=== PATIENT | male | born 1950 | race Two or more races ===

== ENCOUNTER 2018-01-29 07:38 | Day surgery (SDC) | payer OTHER ==
[2018-01-29] VITALS (7 sets, daily range): BP systolic 130–157; BP diastolic 70–85
[~2018-01-29] VITALS: Ht 170.2 cm; Wt 89.8 kg
[~2018-01-29 07:38] MED LIST: LR 1000ml 1,000 ML IVLG SCH
[2018-01-29] MEDS ORDERED: OMEPRAZOLE20 M2 ORAL (08:25)
--- NOTE | 2018-01-29 09:35 | Anethesia Preoperative Eval ---
Anesthesia Pre-op PMH/ROS General Date of Evaluation: Jan 29, 2018 Time of Evaluation: 09:38 Anesthesiologist: Hannah Jackson CRNA ASA Score: ASA 2 Mallampati Score Class I : Soft palate, uvula, fauces, pillars visible Class II: Soft palate, uvula, fauces visible Class III: Soft palate, base of uvula visible Class IV: Only hard plate visible Mallampati Classification: Class III Surgeon: Gisel Diagnosis: GERD Anesthesia History: none Family History: no anesthesia problems Allergies: Coded Allergies: No Known Allergies (Unverified , 01/28/18) Medications: see eMAR Past Medical History Cardiovascular: Denies: HTN, CAD, NM, valve dz, arrhythmia, other Pulmonary: Reports: YEE; Denies: asthma, COPD, other Gastrointestinal/Genitourinary: Reports: GERD; Denies: CRI, ESRD, other Neurologic/Psychiatric: Reports: depression/anxiety; Denies: dementia, CVA, TIA, other Endocrine: Denies: DM, hypothyroidism, steroids, other HEENT: Denies: cataract (L), cataract (R), glaucoma, KENAITZE (L), KENAITZE (R), other Hematology/Immune: Denies: anemia, DVT, bleeding disorder, other Musculoskeletal/Integumentary: Reports: OA; Denies: RA, DJD, DDD, edema, other PMH Narrative: as above PSxH Narrative: Knee surgery Anesthesia Pre-op Phys. Exam Physician Exam Last Vital Signs Date Time Temp Pulse Resp B/P (MAP) Pulse Ox O2 Delivery O2 Flow Rate FiO2 01/29/18 08:30 97.2 64 20 138/79 98 Room Air 97.2 Constitutional: NAD Neurologic: CN 2-12 intact Cardiovascular: RRR Respiratory: CTA Gastrointestinal: S/NT/ND, other - obese Airway Exam Mallampati Score: Class III MO: full Neck: thick short neck TMD: > 3 FB ROM: full Teeth: intact Dentures: no upper, no lower Anesthesia Pre-op A/P Risk Assessment & Plan Assessment: ASA 2, ok to proceed Plan: MAC Status Change Before Surgery: No Pre-Antibiotics Given Within 1 Hr of Incision: Hannah Ambrocio CRNA Jan 29, 2018 09:35
[2018-01-29] MEDS ORDERED: DiphenhydrAMINE 50mg/ml Inj ONE (10:00)
[2018-01-29] MEDS ORDERED: LR 1000ml ONE (10:00)
[2018-01-29] MEDS ORDERED: Lidocaine 1% MPF 10mg/ml 5ml ONE (10:00)
[2018-01-29] MEDS ORDERED: Propofol 200mg/20ml IV ONE (10:00)
--- NOTE | 2018-01-29 10:02 | Pre-Procedure Note/Attestation ---
Pre-Procedure Note/Attestation Complete Prior to Procedure Planned Procedure: left Procedure Narrative: Examination of the upper and lower GI tract via Endoscopy. Indications for Procedure Pre-Operative Diagnosis: None Attestation I attest that I discussed the nature of the procedure; its benefits; risks and complications; and alternatives (and the risks and benefits of such alternatives ), prior to the procedure, with the patient (or the patient's legal marketing sales representative). I attest that, if there was a reasonable possibility of needing a blood transfusion, the patient (or the patient's legal marketing sales representative) was given the [facility] standardized written summary, pursuant to the [place] Blood Safety Act ([place] Health and Safety Code # 1645, as amended). I attest that I re-evaluated the patient just prior to the surgery and that there has been no change in the patient's H&P, except as documented below: Dharmesh Cotton MD Jan 29, 2018 10:02
--- NOTE | 2018-01-29 10:02 | Short Stay Surgery H&P ---
History of Present Illness History of Present Illness Chief Complaint Abdominal pains and rectal bleeding/heartburn HPI Chester Luis is a 67 year old male who was admitted on for Abdominal Pain, Gerd Patient History Allergies: Coded Allergies: No Known Allergies (Unverified , 01/28/18) Past Surgeries: (1) H/O knee surgery Medication History Scheduled Omeprazole (Omeprazole), 20 MG ORAL DAILY, (Reported) Review of Systems Cardiovascular: Reports: no symptoms Respiratory: Reports: no symptoms Skeletal: Reports: trauma Gastrointestinal: Reports: gastro esophageal reflux disease Genitourinary: Reports: no symptoms Neurologic: Reports: no symptoms Endocrine: Reports: no symptoms Hematologic: Reports: no symptoms Physical Exam Vital Signs Last Vital Signs Date Time Temp Pulse Resp B/P (MAP) Pulse Ox O2 Delivery O2 Flow Rate FiO2 01/29/18 08:30 97.2 64 20 138/79 98 Room Air 97.2 Skin: normal HENT: normal Heart: normal Lungs: normal Abdomen: abnormal Extremities: normal Genitourinary: normal Plan Plan of Care Upper and lower GI endoscopy with biopsy. Preop Interventions None. Summary of Findings See the reports. Attestation Are the patient's medical conditions optimized for surgery? Attestation Response: yes Dharmesh Cotton MD Jan 29, 2018 10:01
--- NOTE | 2018-01-29 10:28 | Endoscopy Procedure Note ---
Endoscopy Procedure Note General Indication for Procedure: Abdominal pains, Gerds, Rectal bleeding. Procedures Performed: EGD - Completely normal Upper GI endoscopy with random biopsy done from gstric body., colonoscopy - Minimal internal hemorrhoids. Two 3 -4 mm diminutive hyperplastic polyps removed from transverse colon with cold snare and biopsy forceps. Colonic Diverticulosis. Specimen: yes Pt Tolerated Procedure Well: Yes Estimated Blood Loss: none Anesthesia Anesthesiologist: Ms. Manuel YODER Anesthesia: moderate sedation Medications Medication Given: see anesthesia record Inserted Devices Implant(s) used?: No Quality Quality of Bowel Preparation: Good Did scope reach the cecum?: Yes Was there any complications?: No GI Core Measures 50 yrs or older w/o bx or poly: Yes 10yrs. F/U not recommended: Yes 10 yrs. F/U needed: Yes 18 years or older w/prev. colo: No Med reason:<3 yrs.: System Reason:<3 yrs.: Last colonoscopy >= to 3yrs: No Dharmesh Cotton MD Jan 29, 2018 10:28
--- NOTE | 2018-01-29 10:30 | Discharge Instructions ---
Discharge Instructions Discharge Instructions Follow up with: See the doctor in office after two weeks. For Congestive Heart Failure Reminder Report to your physician any weight gain of 5 pounds or more in one week. Dharmesh Cotton MD Jan 29, 2018 10:30
--- NOTE | 2018-01-29 10:41 | Immediate Post-Op Evaluation ---
Immediate Post-Op Evalulation Immediate Post-Op Evalulation Procedure: EGD, colonoscopy with biopsies Date of Evaluation: Jan 29, 2018 Time of Evaluation: 10:32 IV Fluids: LR 400 ml Estimated Blood Loss: none Blood Pressure Systolic: 145 Blood Pressure Diastolic: 85 Pulse Rate: 61 Respiratory Rate: 18 O2 Sat by Pulse Oximetry: 100 Temperature (Fahrenheit): 98.2 Pain Score (1-10): 0 Nausea: No Vomiting: No Complications none Patient Status: awake, reacts, patent Hydration Status: adequate Given Within 1 Hr of Incision: Hannah Ambrocio CRNA Jan 29, 2018 10:41
--- NOTE | 2018-01-29 11:09 | 48 Hour Post Anesthesia Eval ---
Post Anesthesia Evaluation Procedure: EGD, colonoscopy with biopsies Date of Evaluation: Jan 29, 2018 Time of Evaluation: 11:08 Blood Pressure Systolic: 146 0: 79 Pulse Rate: 64 Respiratory Rate: 19 Temperature (Fahrenheit): 97.5 O2 Sat by Pulse Oximetry: 100 Airway: patent Nausea: No Vomiting: No Pain Intensity: 0 Hydration Status: adequate Cardiopulmonary Status: stable Mental Status/LOC: patient returned to baseline Follow-up Care/Observations: per GI Post-Anesthesia Complications: none Follow-up care needed: ready to discharge Hannah Jackson CRNA Jan 29, 2018 11:09
--- NOTE | 2018-01-29 16:45 | Procedure Note ---
DATE OF PROCEDURE: 01/29/2018 SURGEON: Dharmesh Cotton M.D PROCEDURE: Total colonoscopy with polypectomy. PREOPERATIVE DIAGNOSES: 1. Rectal bleeding. 2. Abdominal pain. POSTOPERATIVE DIAGNOSES: 1. Minimal internal hemorrhoid, mostly the cause of rectal bleeding. 2. Diverticulosis of the colon. 3. Two diminutive hyperplastic polypoid lesions in the transverse colon removed with cold biopsy and cold snare forceps. Otherwise complete normal study up to the base of the cecum. MEDICATION USED: Per BEBA, Manuel. INSTRUMENT: GIF Olympus video colonoscope. DESCRIPTION OF PROCEDURE: The patient after arriving endoscopy unit, was told about risks and benefits of the procedure which he accepted and signed informed consent. At this point, he was put in the left lateral decubitus position. After adequate IV sedation, the scope was gently passed through the anal area and careful examination of this section revealed evidence of minimal internal hemorrhoids, which was thought to be the cause of the patient's rectal bleeding in the past. There was no any tumor, polyps, inflammatory process etc. The retroflexion maneuver was also applied in this area. Finally, the scope was passed through the rectosigmoid area and gradually advanced into the left colon reaching to the splenic flexure from there into transverse colon where few diverticular lesion was found basically in this area and there was seen a couple of diminutive polypoid lesions of 2 to 3 mm size which were hyperplastic in nature and they were grabbed with the cold biopsy and cold snare and totally removed and the specimen were submitted to the pathology lab. Finally, the scope reached to the hepatic flexure guided into the right colon, finding of a couple more diverticular lesions consistent with generalized diverticulosis of mild degree. At this time, the scope was reached towards the base of the cecum finding no other abnormalities. Within 6 minutes, the scope was gradually pulled out and there was no other findings and also the colon cleanup was adequate. The patient tolerated the procedure well and left the endoscopy room in a good condition. Dharmesh Cotton M.D. DR: Boogie JOB#: [id number] CC:
--- NOTE | 2018-01-29 16:45 | Pre-op HX & Phy Repo 2 SIG ---
DATE OF ADMISSION: 01/29/2018 HISTORY OF PRESENT ILLNESS: The patient is a 67-year-old gentleman who is being seen prior to undergoing the procedures of upper and lower GI endoscopy for which he has been scheduled to receive for evaluation of his gastrointestinal conditions that he has claims suffering after his work accident. The patient reports that he has been experiencing the upper epigastric pain and symptoms of heartburn consistent with gastroesophageal acid reflux and he has been prescribed multiple medications including nonsteroidal anti-inflammatory agents such as ibuprofen. This has caused him a discomfort and problems with his abdomen as mentioned. There is no history of GI bleeding as he mentioned, but he has had occasional small amount of rectal bleeding. The cause of which is not clear. He reports that he has been taking these medications of nonsteroidal anti-inflammatory agents for a long period of time more than 10 years. He however denies having any history of constipation or regurgitation. The applicant has been working for [employer] since 1990 until present time during which time he has reported injuries. Basically, his pain has been around his neck area during his function along with the pains over the left shoulder and lower back. He also reported to me that he has been having headaches as well. PAST MEDICAL HISTORY: None significant. He denies having high blood pressure, high cholesterol, arthritis etc. SURGERIES: Except the knee surgery 40 years ago. ALLERGIES: None. HABITS: He denies drinking alcohol or smoking cigarettes. MEDICATIONS: Omeprazole. REVIEW OF SYSTEMS: Basically history of present illness. PHYSICAL EXAMINATION: GENERAL: Alert well-oriented gentleman, does not seem to be in any acute distress. He looks well developed and nourished and in no acute distress. VITAL SIGNS: All stable. HEENT: Normocephalic. Pupils equal in size, reactive to light and accommodation. No visible jaundice. Buccal cavity, tongue midline, well hydrated. No ulcers. NECK: Supple. No JVD, thyromegaly, adenopathy. CHEST: Clear to auscultation and percussion. No evidence of rales or rhonchi. HEART: S1 and S2 normal. Regular rhythm. No gallops or murmur. ABDOMEN: Soft. There is very minimal tenderness over the upper part of the abdomen otherwise within normal limits. No organomegaly. EXTREMITIES: Unremarkable. PRELIMINARY IMPRESSION: 1. Abdominal pain, gastroesophageal reflux, rule out NSAID-induced gastropathy, rule out peptic ulcer disease, gastritis, esophagitis. 2. History of rectal bleeding of uncertain etiology, rule out hemorrhoids versus NSAID-induced colitis. 3. History of bodily injury work related. RECOMMENDATIONS: The applicant at this time seems to be quite stable to undergo the procedures of upper and lower GI endoscopy for which he has been scheduled. He understands the risks and benefits and will sign the consent. Said Beata Cotton DR: Boogie JOB#: [id number] CC:
--- NOTE | 2018-01-29 16:45 | Operative Note - Dictated ---
DATE OF OPERATION: 01/29/2018 SURGEON: Dharmesh Cotton M.D. PROCEDURE: Esophagogastroduodenoscopy with biopsy. PREOPERATIVE DIAGNOSES: Abdominal pain, history of chronic gastroesophageal reflux, rule out NSAID induced gastropathy, peptic ulcer disease. POSTOPERATIVE DIAGNOSIS: Completely normal upper GI endoscopy. Biopsy was taken per random from gastric body. MEDICATION USED: Per Ms. Manuel CRNA. INSTRUMENT: GIF Olympus upper GI video endoscope. DESCRIPTION OF PROCEDURE: The patient after arriving endoscopy unit, was told about risks and benefits of the procedure, which he accepted and signed informed consent. At this time, he was put on the left lateral decubitus position. After adequate IV sedation, the scope was gently passed through the cricopharyngeal area. The cricopharyngeal area was lodged into the esophagus and gradually advanced towards gastroesophageal junction. The entire length of the esophagus looked normal. No evidence of any pathology found. GE junction also looked normal without any evidence of Waggoner's or hiatal hernia. At this time, the scope was guided into the stomach. Gastric cavity was distended and gradually the areas of the fundus and the body and the antrum were examined, which revealed basically normal gastric mucosa with no ulcers or inflammatory process, tumors, polyps, etc. A retroflexion maneuver was also applied and the area of the GE junction was examined in a closer fashion and the fundus, which revealed completely normal. At this time, one random biopsy from the gastric body obtained and subsequently the scope was passed through the pylorus. First and second portion of duodenum were also found to be completely normal. Finally, scope was pulled out and the procedure was terminated. The patient tolerated the procedure well. Dharmesh Cotton M.D. DR: MAREN JOB#: [id number] CC:
== END 2018-01-29 11:35 | disposition home or self-care (01) ==
LOC: GAS 07:38
DX: K64.8 Other hemorrhoids (principal); D12.3 Benign neoplasm of transverse colon; K57.30 Diverticulosis of large intestine without perforation or abscess without bleeding; K21.9 Gastro-esophageal reflux disease without esophagitis; K29.50 Unspecified chronic gastritis without bleeding; G47.33 Obstructive sleep apnea (adult) (pediatric); F32.9 Major depressive disorder, single episode, unspecified; F41.9 Anxiety disorder, unspecified; M19.90 Unspecified osteoarthritis, unspecified site
CPT/HCPCS: 43239; 45385; J1200; J2704; 94003; 94150